=== PATIENT | male | born 1990 | race American Indian/Alaskan Native ===

== ENCOUNTER 2018-06-18 13:40 | Emergency (ER) | payer MEDICAID, OTHER ==
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
[2018-06-18 14:04] VITALS: BP 116/71
--- NOTE | 2018-06-18 14:32 | XRay Report ---
CERVICAL SPINE, 3 views: History: Neck pain. Findings: The vertebral bodies, disk spaces, posterior elements and prevertebral soft tissues are unremarkable. The dens is intact. No acute fracture or malalignment is identified. Impression: Cervical spine within normal limits.
[2018-06-18] MEDS ORDERED: TORADOL IM ONE (16:23)
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
== END 2018-06-18 17:18 | disposition home or self-care (01) ==
LOC: ED 13:40
DX: M25.512 Pain in left shoulder (principal); M54.2 Cervicalgia; M79.10 Myalgia, unspecified site; V89.2XXA Person injured in unspecified motor-vehicle accident, traffic, initial encounter; Y93.89 Activity, other specified; Y92.488 Other paved roadways as the place of occurrence of the external cause; Y99.8 Other external cause status
CPT/HCPCS: 72040; 96372; 99283; J1885